=== PATIENT | female | born 1960 | race Caucasian/White ===

== ENCOUNTER 2018-02-15 20:41 | Emergency (ER) | payer BC, OTHER ==
[~2018-02-15 20:41] MED LIST: CA CHLORIDE 10% 10 ML SYRINGE; EPINEPHrine 0.1 MG/ML SYG; NA BICARBONATE 8.4% 50 ML SYG
== END 2018-02-16 00:15 | disposition expired ==
LOC: E/R 02-16 00:15
DX: I46.9 Cardiac arrest, cause unspecified (principal)
CPT/HCPCS: 82962; 92950; 99285